=== PATIENT | male | born 1975 | race Caucasian/White ===

== ENCOUNTER 2021-04-20 00:05 | Emergency (ER) | payer OTHER ==
[2021-04-20 00:12] VITALS: BP 136/81; PULSE 73; RESP 18; TEMP 98.2
[2021-04-20] MEDS ORDERED: diphenhydrAMINE 50 MG CAP PO STA (00:30)
[2021-04-20 00:46] LABS: Basophils % (A) 0 %; Eosinophils # (A) 0.4 k/uL (0-0.7); Eosinophils % (A) 4 %; HCT 35.7 % (39.0-53.0); HGB 12.3 gm/dL (13.0-17.5); Lymphocytes # (A) 1.8 k/uL (1.0-4.8); Lymphocytes % (A) 18 %; MCH 31.5 pg (25.0-35.0); MCHC 34.5 g/dL (31.0-37.0); MCV 91.2 fL (80.0-100.0); Mean Platelet Volume 7.3; Monocytes # (A) 0.5 k/uL (0-1.0); Monocytes % (A) 5 %; Neutrophils % (A) 72 %; Platelet Count 373 k/uL (150-450); RBC 3.92 m/uL (4.30-5.90); RDW 13.4 % (11.5-15.5); WBC 9.7 k/uL (3.8-10.6)
--- NOTE | 2021-04-20 00:51 | ED ---
General Adult HPI - General Chief complaint: Skin/Abscess/Foreign Body Stated complaint: Rash Time Seen by Provider: 04/20/21 00:14 Source: patient, RN notes reviewed Mode of arrival: ambulatory Limitations: no limitations - History of Present Illness Initial comments: Patient is a 45-year-old male that presents to emergency department complaining of redness to the anterior aspect of his neck. He notes that he was recently seen by [facility] and given penicillin for a dental infection. He notes that he's taken the first day and a half worth of medication and noticed a red spot on the anterior aspect of his throat. His brought him in here to get evaluated just to make sure. Patient denied any pain tenderness to the anterior aspect of the neck. He was in no apparent distress or pain while sitting up in bed during exam and interview. She denied any chest pain shortness of breath headache nausea vomiting diarrhea constipation fever fatigue chills. - Related Data Allergies Allergy/AdvReac Type Severity Reaction Status Date / Time No Known Allergies Allergy Verified 04/20/21 00:12 Review of Systems ROS Statement: Those systems with pertinent positive or pertinent negative responses have been documented in the HPI. ROS Other: All systems not noted in ROS Statement are negative. Past Medical History Past Medical History: No Reported History History of Any Multi-Drug Resistant Organisms: None Reported Past Surgical History: No Surgical Hx Reported Past Psychological History: No Psychological Hx Reported Smoking Status: Current every day smoker Past Alcohol Use History: None Reported Past Drug Use History: Marijuana General Exam Limitations: no limitations General appearance: alert, in no apparent distress Head exam: Present: atraumatic, normocephalic, normal inspection Eye exam: Present: normal appearance, PERRL, EOMI. Absent: scleral icterus, conjunctival injection, periorbital swelling Neck exam: Present: normal inspection, full ROM, other (Erythema covering the majority of the anterior neck). Absent: tenderness, meningismus, lymphadenopathy Expanded Neck exam: Absent: anterior neck swelling, thyroid mass, tracheal deviation Respiratory exam: Present: normal lung sounds bilaterally. Absent: respiratory distress, wheezes, rales, rhonchi, stridor Cardiovascular Exam: Present: regular rate, normal rhythm, normal heart sounds. Absent: systolic murmur, diastolic murmur, rubs, gallop, clicks GI/Abdominal exam: Present: soft, normal bowel sounds. Absent: distended, tenderness, guarding, rebound, rigid Extremities exam: Present: normal inspection, full ROM, normal capillary refill. Absent: tenderness, pedal edema, joint swelling, calf tenderness Neurological exam: Present: alert, oriented X3, CN II-XII intact Psychiatric exam: Present: normal affect, normal mood Skin exam: Present: warm, dry, intact, normal color, erythema (To the majority the anterior aspect of the neck.) Course Vital Signs 04/20/21 00:06 Temperature 98.2 F Pulse Rate 73 Respiratory 18 Rate Blood Pressure 136/81 O2 Sat by Pulse 100 Oximetry Medical Decision Making - Medical Decision Making 45-year-old male dental abscess started penicillin Monday morning complaining of redness to the front of his neck. Labs unremarkable. 6 mg Decadron ordered. Case discussed with Dr. Laura him a patient can discharge home with follow-up primary care. - Lab Data Result diagrams: 04/20/21 00:37 04/20/21 00:37 Lab Results 04/20/21 04/20/21 Range/Units 00:37 00:37 WBC 9.7 (3.8-10.6) k/uL RBC 3.92 L (4.30-5.90) m/uL Hgb 12.3 L (13.0-17.5) gm/dL Hct 35.7 L (39.0-53.0) % MCV 91.2 (80.0-100.0) fL MCH 31.5 (25.0-35.0) pg MCHC 34.5 (31.0-37.0) g/dL RDW 13.4 (11.5-15.5) % Plt Count 373 (150-450) k/uL MPV 7.3 Neutrophils % 72 % Lymphocytes % 18 % Monocytes % 5 % Eosinophils % 4 % Basophils % 0 % Neutrophils # 7.0 (1.3-7.7) k/uL Lymphocytes # 1.8 (1.0-4.8) k/uL Monocytes # 0.5 (0-1.0) k/uL Eosinophils # 0.4 (0-0.7) k/uL Basophils # 0.0 (0-0.2) k/uL Sodium 141 (137-145) mmol/L Potassium 4.3 (3.5-5.1) mmol/L Chloride 103 (98-107) mmol/L Carbon Dioxide 30 (22-30) mmol/L Anion Gap 8 mmol/L BUN 9 (9-20) mg/dL Creatinine 0.69 (0.66-1.25) mg/dL Est GFR (CKD-EPI)AfAm >90 (>60 ml/min/1.73 sqM) Est GFR (CKD-EPI)NonAf >90 (>60 ml/min/1.73 sqM) Glucose 101 H (74-99) mg/dL Calcium 10.1 (8.4-10.2) mg/dL Total Bilirubin 0.1 L (0.2-1.3) mg/dL AST 20 (17-59) U/L ALT 8 (4-49) U/L Alkaline Phosphatase 47 (38-126) U/L Total Protein 7.2 (6.3-8.2) g/dL Albumin 4.8 (3.5-5.0) g/dL - Radiology Data Radiology results: report reviewed, image reviewed CT of the soft tissue neck: There is a punctate collection of gas along the deep cortex of the right body of the mandible near the myeloid line. This is in close approximation 20 partially missing molar in the right mandible which may be within the oral pharynx or early subcutaneous emphysema in the floor of the mouth from an infectious source. In addition there is asymmetric hypodense ap pearance of the muscles involving the right floor of the mouth extending to the submandibular region with asymmetric lymph nodes surrounding the right submandibular gland. In addition there is subcutaneous fat stranding at the floor of the mouth over lying the inferior aspect of the right mandible. Evaluation of soft tissue is somewhat limited without contrast. Primary consideration is cellulitis myositis. No obvious well-defined abscess to find Disposition Clinical Impression: Dental infection Disposition: HOME SELF-CARE Condition: Stable Instructions (If sedation given, give patient instructions): Gingivostomatitis (ED) Additional Instructions: Please return to the Emergency Department if symptoms worsen or any other concerns. Continue take Benadryl as directed on the box. Follow-up with primary care in the next one-two days. see If you can get in with her dentist earlier than planned. Is patient prescribed a controlled substance at d/c from ED?: No Referrals: Suzanne Garcia MD [Primary Care Provider] - 1-2 days Time of Disposition: 02:02
[2021-04-20 01:08] LABS: ALT 8 U/L (4-49); AST 20 U/L (17-59); African American GFR (CKD) >90 (>60 ml/min/1.73 sqM); Albumin 4.8 g/dL (3.5-5.0); Alkaline Phosphatase 47 U/L (38-126); Anion Gap 8 mmol/L; Blood Urea Nitrogen 9 mg/dL (9-20); Calcium 10.1 mg/dL (8.4-10.2); Carbon Dioxide 30 mmol/L (22-30); Chloride 103 mmol/L (98-107); Glucose 101 mg/dL (74-99); Non-African American GFR(CKD) >90 (>60 ml/min/1.73 sqM); Potassium 4.3 mmol/L (3.5-5.1); Sodium 141 mmol/L (137-145); Total Bilirubin 0.1 mg/dL (0.2-1.3); Total Protein 7.2 g/dL (6.3-8.2)
--- NOTE | 2021-04-20 01:33 | CT ---
EXAM: CT Neck Without Intravenous Contrast CLINICAL HISTORY: ITS.REASON CT Reason: tooth abscess with redness to neck TECHNIQUE: Axial computed tomography images of the neck without intravenous contrast. CTDI is 6.4 mGy and DLP is 246.1 mGy-cm. This CT exam was performed using one or more of the following dose reduction techniques: automated exposure control, adjustment of the mA and/or kV according to patient size, and/or use of iterative reconstruction technique. COMPARISON: No relevant prior studies available. FINDINGS: Artifacts: There is dental hardware artifact throughout the oropharynx. Oropharynx: No obvious asymmetry in the oropharyngeal mucosa or parapharyngeal spaces. Hypopharynx: Unremarkable. Larynx: Unremarkable. Normal epiglottis. Trachea: Unremarkable. Retropharyngeal space: Unremarkable. Submandibular/parotid glands: Unremarkable. Glands are normal in size. Thyroid: Unremarkable. No enlarged or calcified nodules. Bones/joints: No acute fracture. Soft tissues: There is a punctate collection of gas along the deep cortex of the right body of the mandible near the mylohyoid line (series 201; images 38-39). This is in close approximation to a partially missing posterior molar in the right mandible. In addition, there is asymmetric hypodense appearance of the muscles involving the right floor the mouth extending to the submandibular region with asymmetric lymph nodes surrounding the right submandibular gland. Vasculature: No acute findings. Lymph nodes: See above. No other significant lymphadenopathy. Lung apices: Unremarkable as visualized. IMPRESSION: 1. There is a punctate collection of gas along the deep cortex of the right body of the mandible near the mylohyoid line. This is in close approximation to a partially missing molar in the right mandible which may be within the oropharynx or early subcutaneous emphysema in the floor the mouth from an infectious source. 2. In addition, there is asymmetric hypodense appearance of the muscles involving the right floor the mouth extending to the submandibular region with asymmetric lymph nodes surrounding the right submandibular gland. In addition, there is subcutaneous fat stranding at the floor the mouth and overlying the inferior aspect of the right mandible. Evaluation of the soft tissues is somewhat limited without contrast. Primary consideration is cellulitis/myositis. No obvious well-defined abscess identified.
[2021-04-20] MEDS ORDERED: DEXAMETHASONE SOD PHOSPHATE 10 MG/ML 1 ML VIAL IV STA (02:39)
[2021-04-20] MEDS ORDERED: DEXAMETHASONE SOD PHOSPHATE 10 MG/ML 1 ML VIAL IV SCH (09:00)
== END 2021-04-20 02:46 | disposition home or self-care (01) ==
LOC: EC 00:05
DX: K04.7 Periapical abscess without sinus (principal); L53.9 Erythematous condition, unspecified; F17.200 Nicotine dependence, unspecified, uncomplicated; F12.90 Cannabis use, unspecified, uncomplicated
CPT/HCPCS: 36415; 70490; 80053; 85025; 96374; 99283

== ENCOUNTER → 2021-08-24 | Outpatient (CLI) | payer OTHER ==
[2021-08-24 11:30] LABS: Basophils # (A) 0.05 X 10*3/uL (0.00-0.10); Basophils % (A) 0.7 %; Eosinophils # (A) 0.43 X 10*3/uL (0.04-0.35); Eosinophils % (A) 6.2 %; HCT 30.4 % (39.6-50.0); Lymphocytes # (A) 2.15 X 10*3/uL (0.90-5.00); Lymphocytes % (A) 30.9 %; MCHC 32.9 g/dL (32.0-37.0); MCV 91.3 fL (80.0-97.0); Monocytes # (A) 0.52 X 10*3/uL (0.20-1.00); Monocytes % (A) 7.5 %; Neutrophils # (A) 3.77 X 10*3/uL (1.80-7.70); Neutrophils % (A) 54.3 %; Platelet Count 412 X 10*3/uL (140-440); RBC 3.33 X 10*6/uL (4.40-5.60); WBC 6.95 X 10*3/uL (4.50-10.00)
[2021-08-24 13:52] LABS: Protein, Total 6.7 g/dL (6.2-8.2)
[2021-08-25 04:59] LABS: ALT 13 U/L (10-49); AST 27 U/L (14-35); African American GFR (CKD) 138.8 (60.0-200.0); Albumin/Globulin Ratio 2.63 (1.60-3.17); Alkaline Phosphatase 42 U/L (41-126); Blood Urea Nitrogen 16.8 mg/dL (9.0-27.0); Calcium 9.8 mg/dL (8.7-10.3); Carbon Dioxide 18.8 mmol/L (21.6-31.8); Chloride 102 mmol/L (96-109); Chol/HDL Ratio 7.96 Ratio; Globulin 1.9 g/dL (1.6-3.3); Glucose 83 mg/dL (70-110); LDL Cholesterol,Calculated 73.6 mg/dL (0.0-131.0); Non-African American GFR(CKD) 119.7 (60.0-200.0); Potassium 4.2 mmol/L (3.5-5.5); Sodium 140 mmol/L (135-145); Total Bilirubin <0.20 mg/dL (0.30-1.20); Total Protein 6.9 g/dL (6.2-8.2)
[2021-08-25 12:46] LABS: HLA B27 NEGATIVE
== END | disposition home or self-care (01) ==
LOC: LABWHC1 08:09
PROVIDERS: ATTEND Family Medicine
DX: M54.9 Dorsalgia, unspecified (principal); E55.9 Vitamin D deficiency, unspecified; G89.4 Chronic pain syndrome
CPT/HCPCS: 36415; 80053; 80061; 82306; 82607; 84165; 84443; 85025; 86038; 86334; 86618; 86812

== ENCOUNTER 2021-10-29 08:25 | Day surgery (SDC) | payer OTHER ==
[2021-10-27 10:30] VITALS: BMI 23.5
[~2021-10-29 08:25] MED LIST: LACTATED RINGERS 1,000 ML IV SCH
[2021-10-29 08:56] VITALS: TEMP 98.5
[2021-10-29] MEDS ORDERED: PROPOFOL 10 MG/ML 20 ML VIAL IV ONE (09:13)
--- NOTE | 2021-10-29 09:39 | P.PCN ---
Date of Procedure: 10/29/21 Preoperative Diagnosis: Anemia Postoperative Diagnosis: Gastritis Normal colon Procedure(s) Performed: EGD with biopsy Colonoscopy Anesthesia: MAC Surgeon: Sandy Abarca Pathology: other (Biopsies of duodenum, antrum, esophagus) Condition: stable Disposition: same day Indications for Procedure: 46-year-old male with recent finding of anemia on blood work. Due to this and patient's age, plan for upper and lower endoscopy were recommended. Patient denies any gross blood in his stool or emesis. Denies any family history of colon cancer. Operative Findings: Gastritis Overall, normal colon Description of Procedure: The patient was brought to endoscopy suite and placed in left lateral decubitus position and adequate sedation was achieved using conscious sedation. A bite block was placed and an endoscope was placed in the oropharynx and advanced under endoscopic visualization. The endoscope was advanced through the esophagus into the stomach, through the gastric antrum and in through the pylorus. The third portion of the duodenum was visualized. The endoscope was then slowly withdrawn. The first portion of duodenum was noted to have inflammatory changes. Biopsies were taken. The antrum was noted to have mild from her changes. Biopsies were taken. The gastric body distended normally the gastric folds appeared normal and flattened with insufflation. A retroflexed view of the fundus and GE junction revealed no significant hiatal hernia. The esophagus appeared endoscopically normal. Biopsies were taken. Excess air was removed and the scope was withdrawn.. A digital rectal exam was performed and internal hemorrhoids were palpated. An endoscope was then placed in the rectum and advanced to the cecum as identified by landmarks including the appendiceal orifice and the ileocecal valve. The prep was good. The colonoscope was slowly withdrawn, examining for any mucosal antibiotics. The cecum, ascending, transverse, descending and sigmoid colon were visualized adequately. There were no large neoplastic lesions noted throughout the colon. There were no obvious polyps noted throughout the colon. There is no evidence of active hemorrhage and no evidence of diverticulosis. Retroflexion was performed in the rectum and internal hemorrhoids were visible. Excess air was removed from the colonoscope withdrawn and the procedure terminated. The patient was then transferred to the recovery unit in stable condition. Repeat colonoscopy should be performed in 8 years.
[2021-10-29 09:59] VITALS: BP 128/78; PULSE 78; RESP 18
== END 2021-10-29 10:25 | disposition home or self-care (01) ==
LOC: ORWHC2ENDO 08:25
PROVIDERS: ATTEND Surgery
DX: K29.70 Gastritis, unspecified, without bleeding (principal); D64.9 Anemia, unspecified
CPT/HCPCS: 45378; 43239; 88305; J2704

== ENCOUNTER → 2022-12-21 | Outpatient (CLI) | payer OTHER ==
--- NOTE | 2022-12-21 09:32 | MR ---
EXAMINATION TYPE: MR lumbar spine wo con DATE OF EXAM: 12/21/2022 COMPARISON: CT lumbar spine November 23, 2021 HISTORY: Lower back pain, bilateral leg numbness. TECHNIQUE: Multiplanar, multisequence imaging of the lumbar spine is performed without IV contrast. FINDINGS: There is slight dextroconvex scoliotic curvature centered mid lumbar spine redemonstrated. Sagittal images of the lumbar spine show vertebral body heights to remain satisfactory. There is disc desiccation L4-L5 and L5-S1 level. Disc space heights are preserved. The conus medullaris is normal in position and signal ending mid L1 level. The bone marrow signal intensity is within normal limit s. Axial images show T12-L1 through the L3-L4 levels to appear within normal limits. Axial images L4-L5 level show mild/moderate broad-based disc bulge effacing the anterior thecal sac a long with moderate facet arthropathy and ligamentum flavum hypertrophy effacing the bilateral lateral aspect thecal sac. There is moderate left greater than right bilateral inferior neural foraminal kenan rowing. Axial images at L5-S1 level show moderate facet arthropathy bilaterally. There is focal left paracent ral disc protrusion effacing the lateral recess. There is mild to moderate left greater than right fa cet arthropathy redemonstrated. There is severe left and moderate to severe right-sided neural forami nal narrowing. Spinal canal grossly preserved. No suspicious retroperitoneal findings. IMPRESSION: Degenerative changes in the lower lumbar spine as detailed above.
== END | disposition home or self-care (01) ==
LOC: RADMRIMAIN 07:50
PROVIDERS: ATTEND Family Medicine
DX: M51.26 Other intervertebral disc displacement, lumbar region (principal); M47.816 Spondylosis without myelopathy or radiculopathy, lumbar region; M48.062 Spinal stenosis, lumbar region with neurogenic claudication
CPT/HCPCS: 72148